=== PATIENT | male | born 1945 | race Caucasian/White ===

== ENCOUNTER 2019-01-25 22:06 | Emergency (ER) | payer MEDICARE ==
--- NOTE | 2019-01-25 22:44 | ED Physician Chart ---
ED Chief Complaint/HPI - Patient Information Date Seen:: 01/25/19 Time Seen:: 22:15 Chief Complaint:: bleeding dialysis shunt History of Present Illness:: Patient has been on dialysis for about 4 years. He last had dialysis yesterday. His dialysis shunt site started bleeding at about 1800 tonight and [facility] not [facility] so patient was [facility] here. Allergies:: Allergies Allergy/AdvReac Type Severity Reaction Status Date / Time No Known Allergies Allergy Verified 01/25/19 22:12 Vitals:: Vital Signs - 8 hr 01/25/19 22:06 Temp 98.5 F HR 58 RR 18 BP 110/64 O2 Sat % 100 Historian:: Patient ED Past Medical History - Past Medical History Past Medical History: ESRD, Thyroid disorder Family History: Other (hypotension) Social History: Other (formerly smoked cigarettes and drank alcohol sporadically ) Surgical History: other Psychiatricy History: None Medication: Reviewed Family Medical History - Family Member Mother History Unknown: Yes ED Physical Exam - Physical Examination General/Constitutional: Awake, Well-developed, well-nourished Head: Atraumatic Eyes: Lids, conjuctiva normal Other Skin comments:: Less than 1 mm bleeding site distal left forearm ENMT: External ears, nose nl Neck: No nuchal rigidity Respiratory: Nl effort/Exclusion, Clear to Auscultation Cardio Vascular: RRR, No murmur, gallop, rubs GI: No tenderness/rebounding/guarding Neuro/Psych: No focal deficits Misc: No paraspinal tenderness ED Assessment Location:: Bleeding site dialysis shunt site left upper arm: Skin cleansed with Betadine solution; 1% Xylocaine for local anesthesia; 2 6-0 chromic sutures placed at 90 to each over the bleeding site; bleeding stopped; folded 4 x 4's and three- inch Migue wrap for pressure dressing. ED Septic Shock - . Is Septic Shock (SBP<90, OR Lactate>4 mmol\L) present?: No - <6hrs of presentation: Vital Signs: Vital Signs - 8 hr 01/25/19 22:06 Temp 98.5 F HR 58 RR 18 BP 110/64 O2 Sat % 100 ED Reassessment (Disposition) - Reassessment Reassessment Condition:: Improved - Aftercare/Follow up Instructions Aftercare/Follow-Up Instructions:: Refer to Discharge Instructions - Patient Disposition Discharge/Transfer:: Intermediate Care - SNF Spoke to:: Leif Oneill Condition at Disposition:: Stable, Improved
[2019-01-25 22:52] LABS: % EOSINOPHILS 4.8 % (0.0-5.0); % MONOCYTES 6.8 % (2.0-10.0); % NEUTROPHILS 72.4 % (40.0-80.0); EOSINOPHILE ABSOLUTE 0.3 Th/cmm (0.1-0.4); HEMATOCRIT 41.8 % (41.0-60); HEMOGLOBIN 13.8 gm/dL (12-16); LYMPHOCYTE ABSOLUTE 1.1 Th/cmm (1.5-3.0); MEAN CORPUSCULAR HEMOGLOBIN 35.3 pg (27.0-31.0); MEAN CORPUSCULAR HGB CONC 33.1 pg (28.0-36.0); MONOCYTE ABSOLUTE 0.5 Th/cmm (0.3-1.0); NEUTROPHILE ABSOLUTE 4.8 Th/cmm (1.8-8.0); PLATELET COUNT 150 Th/cmm (150-400); RED BLOOD COUNT 3.92 Mil/cmm (3.80-5.80); RED CELL DISTRIBUTION WIDTH 15.2 % (11.5-20.0); WHITE BLOOD COUNT 6.7 Th/cmm (4.8-10.8)
[2019-01-25 23:04] LABS: ANION GAP 14.9 (7.0-16.0); BUN - UREA NITROGEN 42 mg/dL (7-25); CALCIUM SERUM 9.7 mg/dL (8.6-10.3); CARBON DIOXIDE 30.6 mEq/L (21.0-31.0); CHLORIDE 96 mEq/L (98-107); GLUCOSE 127 mg/dL (70-105); POTASSIUM SERUM 4.5 mEq/L (3.5-5.1); SODIUM SERUM 137 mEq/L (136-145)
[2019-01-25 23:27] LABS: CREATININE - SERUM 5.1 mg/dL (0.7-1.3)
[2019-01-25 23:29] LABS: MEAN CELL VOLUME 106.6 fl (80-99)
== END 2019-01-26 01:30 ==
LOC: ER 22:06
DX: N99.820 Postprocedural hemorrhage of a genitourinary system organ or structure following a genitourinary system procedure (principal); N18.6 End stage renal disease; E03.9 Hypothyroidism, unspecified; Z87.891 Personal history of nicotine dependence; Z99.2 Dependence on renal dialysis
CPT/HCPCS: 36415-UA; 80048-TC; 85025-TC; Z7502; Z7610